=== PATIENT | female | born 1985 | race Caucasian/White ===

== ENCOUNTER 2016-12-27 09:05 | Observation (INO) | payer BC ==
[2016-12-27] MEDS ORDERED: PREDNISONE10 M1 PO ×2 (10:05→10:16)
[2016-12-27] MEDS ORDERED: PLAQUENIL200 M1 PO ×2 (10:06→10:07)
[2016-12-27] MEDS ORDERED: VITAMIN D31000 UNI3 PO (10:09)
[2016-12-27] MEDS ORDERED: FOLIC ACID1 M1 PO (10:09)
[2016-12-27] MEDS ORDERED: FEROSUL325 M1 PO (10:10)
[2016-12-27] MEDS ORDERED: PRENATAL VITAM1 EAC7 PO (10:10)
== END 2016-12-27 13:30 ==
LOC: LDR 09:05
PROVIDERS: ADMIT Specialist
DX: O36.8130 Decreased fetal movements, third trimester, not applicable or unspecified (principal); Z3A.35 35 weeks gestation of pregnancy; Z88.0 Allergy status to penicillin; Z88.1 Allergy status to other antibiotic agents; Z88.2 Allergy status to sulfonamides; Z79.899 Other long term (current) drug therapy
CPT/HCPCS: J0702

== ENCOUNTER 2016-12-28 06:29 | Inpatient (IN) | payer BC ==
[~2016-12-28 06:29] MED LIST: FEROSUL325 M1 PO; FOLIC ACID1 M1 PO; PLAQUENIL200 M1 PO; PREDNISONE10 M1 PO; PRENATAL VITAM1 EAC7 PO; VITAMIN D31000 UNI3 PO
[2016-12-28 10:10] LABS: BASO % 0.1 % (0-2); EOS % 0.1 % (0-7); HCT-HEMATOCRIT 33.9 % (34.0-49.0); HGB-HEMOGLOBIN 11.5 gm/dl (12.0-15.5); IMMATURE GRANULOCYTES ABSOLUTE 0.08 tho/cmm (0-0.03); IMMATURE GRANULOCYTES PERCENT 0.6 % (0-0.3); LYMPH ABSOLUTE COUNT 1.4 tho/cmm (0.8-4.5); MCHC MEAN CORPUSCULAR HGB CONC 33.9 % (32.0-36.0); MCV (MEAN CELL VOLUME) 91.4 fl (82.0-96.0); MEAN PLATELET VOLUME 9.4 cmc (9.4-12.4); MONO % 8.5 % (0-12); MONOCYTE ABSOLUTE COUNT 1.1 tho/cmm (0.0-1.2); NEUTROPHIL ABSOLUTE COUNT 10.1 tho/cmm (1.6-8.0); NEUTROPHIL-AUTOMATED 10.1 tho/cmm (1.6-8.0); NEUTROPHILS % 79.7 % (40-80); PLATELET COUNT 210 tho/cmm (150-450); RED BLOOD COUNT 3.71 mil/cmm (4.00-5.20); RED CELL DISTRIBUTION WIDTH 12.8 % (12.4-16.4); WHITE BLOOD COUNT 12.6 tho/cmm (4.0-10.0)
[2016-12-29 11:37] LABS: CORD BLOOD PH ARTERIAL 7.33 Units (7.18-7.38)
[2016-12-30 08:03] LABS: BASO % 0.1 % (0-2); EOS % 0.2 % (0-7); HGB-HEMOGLOBIN 10.3 gm/dl (12.0-15.5); IMMATURE GRANULOCYTES ABSOLUTE 0.13 tho/cmm (0-0.03); IMMATURE GRANULOCYTES PERCENT 0.8 % (0-0.3); LYMPH % 14.9 % (20-45); LYMPH ABSOLUTE COUNT 2.6 tho/cmm (0.8-4.5); MCHC MEAN CORPUSCULAR HGB CONC 33.2 % (32.0-36.0); MCV (MEAN CELL VOLUME) 93.4 fl (82.0-96.0); MEAN PLATELET VOLUME 9.5 cmc (9.4-12.4); MONO % 6.8 % (0-12); MONOCYTE ABSOLUTE COUNT 1.2 tho/cmm (0.0-1.2); NEUTROPHIL ABSOLUTE COUNT 13.4 tho/cmm (1.6-8.0); NEUTROPHIL-AUTOMATED 13.4 tho/cmm (1.6-8.0); NEUTROPHILS % 77.2 % (40-80); PLATELET COUNT 216 tho/cmm (150-450); RED BLOOD COUNT 3.32 mil/cmm (4.00-5.20); RED CELL DISTRIBUTION WIDTH 13.2 % (12.4-16.4); WHITE BLOOD COUNT 17.3 tho/cmm (4.0-10.0)
[2017-01-02] MEDS ORDERED: IBUPROFEN800 M1 PO (09:53)
[2017-01-02] MEDS ORDERED: PERCOCET 5-3251 EACH PO (09:54)
== END 2017-01-02 16:30 | DRG 766 ==
LOC: LDR 06:29 → OBGE 12-29 12:40 → OBGF 12-30 11:45
PROVIDERS: ADMIT Specialist
PROC: 10D00Z1 Extraction of Products of Conception, Low, Open Approach (ICD-10-PCS; principal; 2016-12-29)
DX: O36.5930 Maternal care for other known or suspected poor fetal growth, third trimester, not applicable or unspecified (principal); M32.9 Systemic lupus erythematosus, unspecified; Z3A.36 36 weeks gestation of pregnancy; Z37.0 Single live birth
CPT/HCPCS: J0690; J0702; J2590; J7512